=== PATIENT | female | born 1995 | race Caucasian/White ===

== ENCOUNTER 2017-09-19 13:13 | Emergency (ER) | payer BC ==
[~2017-09-19] VITALS: Ht 172.7 cm; Wt 75.0 kg
[2017-09-19 13:18] VITALS: BP 112/66
[2017-09-19] MEDS ORDERED: IBUP-1984 PO (15:00)
== END 2017-09-19 15:43 | disposition home or self-care (01) ==
LOC: ER 13:14
DX: M94.0 Chondrocostal junction syndrome [Tietze] (principal); Z79.899 Other long term (current) drug therapy
CPT/HCPCS: 71045; 99283